=== PATIENT | male | born 1950 | race Caucasian/White ===

== ENCOUNTER 2018-03-31 22:58 | Emergency (ER) | payer BC, MEDICARE ==
[2018-03-31] MEDS ORDERED: Acetaminophen TAB* 325 MG PO ONE (23:24)
[2018-03-31] MEDS ORDERED: NS 0.9% 1000 ML* 1,000 ML IV ONE (23:24)
[2018-03-31] MEDS ORDERED: Albuterol 2.5 MG/3 ML NEB.SOL* (0.083%) INH ONE ×2 (23:24→23:57)
[2018-03-31] MEDS ORDERED: Albuterol/Ipratropium NEB.SOL* Albuterol 2.5 MG/Ipratropium 0.5 MG 3 ML INH ONE (23:24)
[2018-03-31] MEDS ORDERED: Albuterol/Ipratropium NEB.SOL* Albuterol 2.5 MG/Ipratropium 0.5 MG 3 ML ONE (23:57)
--- NOTE | 2018-04-01 00:32 | ED ---
Respiratory - HPI Summary HPI Summary: This is scribe Miko Sorenson documenting for attending Jannie Sifuentes MD. A 67 y/o male presents to ED c/o SOB and cough. In the ED room, the patient has a pulse of 74 BPM, O2 saturation of 98% and blood pressure of 143/74. According to the patient's family, the patient was recently diagnosed with acute bronchitis approximately 1 week ago. He was put on Bactrim. Along with the bronchitis the patient had a fever, but those symptoms broke as he was feeling better for the past couple days, however, the patient today "was going down hill ". He experiences coughing, SOB and pain. He noted that every time he takes a deep breathe he has to cough. His family stated that his temperature was subnormal as it was 98.6 and was diaphoretic at home. Plus, the other day, his cough brought up green/yellow flem (not currently). Patient denies any smoking. Pt was on Prednisone for 2 years but he has been off for past year. No current medications. PMHx of pneumonia and polymyalgia gramatica. I, Dr. Sifuentes, personally performed the services described in this documentation as scribed in my presence and it is both accurate and complete. - History of Current Complaint Chief Complaint: EDShortnessOfBreath Stated Complaint: SOB Time Seen by Provider: 03/31/18 23:11 Hx Obtained From: Patient Onset/Duration: Sudden Onset, Lasting Hours, Still Present Initial Severity: Severe Current Severity: Severe Pain Intensity: 8 Character: Cough (Productive) - Yellow/green flem the other day, not currently. , Cough (Nonproductive) - Current nonproductive cough., Dyspnea at Rest Sputum Amount: None - Currently Sputum Color: Yellow - The other day, Green - The other day Aggravating Factor(s): Deep Breaths - Feels the need to cough with deep breaths Alleviating Factor(s): Nothing Associated Signs and Symptoms: Fever - Subnormal, SOB, Diaphoresis, Dyspnea - Allergy/Home Medications Allergies/Adverse Reactions: Allergies Allergy/AdvReac Type Severity Reaction Status Date / Time amoxicillin [From Augmentin] Allergy Nausea And Verified 03/31/18 23:05 Vomiting clavulanic acid Allergy Nausea And Verified 03/31/18 23:05 [From Augmentin] Vomiting codeine Allergy Nausea And Verified 03/31/18 23:05 Vomiting PMH/Surg Hx/FS Hx/Imm Hx Endocrine/Hematology History: Denies: Hx Diabetes Cardiovascular History: Denies: Hx Hypertension, Hx Pacemaker/ICD Respiratory History: Denies: Hx Asthma, Hx Chronic Obstructive Pulmonary Disease (COPD) History: Denies: Hx Renal Disease Musculoskeletal History: Reports: Other Musculoskeletal History - polymyalgia rheumatica Sensory History: Denies: Hx Hearing Aid Psychiatric History: Denies: Hx Panic Disorder - Surgical History Surgery Procedure, Year, and Place: deviated septum,lt rotator cuff repair,pec repair,appy, lt knee cap bone chip removed, rt foot orif multiple sites, - Immunization History Immunizations Up to Date: Yes Infectious Disease History: No Infectious Disease History: Denies: Traveled Outside the [place] in Last 30 Days - Family History Known Family History: Positive: Diabetes - Uncle and mother - Social History Alcohol Use: Rare Substance Use Type: Reports: None Smoking Status (MU): Never Smoked Tobacco Review of Systems Positive: Fever - subnormal, Skin Diaphoresis Positive: Shortness Of Breath, Cough, Other - POSITIVE: Pain All Other Systems Reviewed And Are Negative: Yes Physical Exam - Summary Physical Exam Summary: VITAL SIGNS: Reviewed. GENERAL: Patient is a well-developed and nourished male who is lying comfortable in the stretcher. Patient is in acute respiratory distress. Patient is coughing in ED room. HEAD AND FACE: No signs of trauma. No ecchymosis, hematomas or skull depressions. No sinus tenderness. EYES: PERRLA, EOMI x 2, No injected conjunctiva, no nystagmus. EARS: Hearing grossly intact. Ear canals and tympanic membranes are within normal limits. MOUTH: Oropharynx within normal limits. NECK: Supple, trachea is midline, no adenopathy, no JVD, no carotid bruit, no c- spine tenderness, neck with full ROM. CHEST: Symmetric, no tenderness at palpation LUNGS: Decreased bilaterally breathe sounds. Patient is coughing in ED room. CVS: Regular rate and rhythm, S1 and S2 present, no murmurs or gallops appreciated. ABDOMEN: Soft, non-tender. No signs of distention. No rebound no guarding, and no masses palpated. Bowel sounds are normal. EXTREMITIES: FROM in all major joints, no edema, no cyanosis or clubbing. NEURO: Alert and oriented x 3. No acute neurological deficits. Speech is normal and follows commands. SKIN: Dry and warm Triage Information Reviewed: Yes Vital Signs On Initial Exam: Initial Vitals Temp Pulse Resp BP Pulse Ox 97.8 F 83 24 143/61 100 03/31/18 23:01 03/31/18 23:01 03/31/18 23:01 03/31/18 23:01 03/31/18 23:01 Vital Signs Reviewed: Yes Diagnostics - Vital Signs Vital Signs Temp Pulse Resp BP Pulse Ox 03/31/18 23:01 97.8 F 83 24 143/61 100 - Laboratory Result Diagrams: 04/01/18 00:49 04/01/18 00:50 Lab Statement: Any lab studies that have been ordered have been reviewed, and results considered in the medical decision making process. - Radiology CXR Radiology Interpretation Completed By: ED Physician - No acute process. Pending official report. - CT CTA CHEST/THORAX CT Interpretation Completed By: Radiologist - 1. No evidence of pulmonary embolic disease. 2. No colonic consolidation. 3. Focal hypodensities located in the liver. This could represent a hemangioma a similar lesion is seen in the left lobe the liver. ED physician reviewed this radiology report. - EKG 2324 Cardiac Rate: NL - 66 BPM EKG Rhythm: Sinus Rhythm EKG Interpretation: Normal axis, normal interval, no ischemic changes. Re-Evaluation - Re-Evaluation First Eval Re-Evaluation Time: 04:03 Comment: Repeated lactic acid was 2.8, however, patient recieved only 1 L of IV fluid. Disposition - Course Course Of Treatment: A 67 y/o male presents to ED c/o SOB and cough. In the ED room, the patient has a pulse of 74 BPM, O2 saturation of 98% and blood pressure of 143/74. During examination, patient was coughing and exhibited decreased breath sounds bilaterally. A CTA Chest/Thorax revealed 1. No evidence of pulmonary embolic disease. 2. No colonic consolidation. 3. Focal hypodensities located in the liver. This could represent a hemangioma a similar lesion is seen in the left lobe the liver. A CXR revealed no acute process. An EKG revealed NSR of 66 BPM, normal axis, normal interval, no ischemic changes. In the ED course, the patient recieved Tylenol, Ventolin, Duoneb, Codeine, Visipaque, Solu-Medrol, Klor Con Er Tab and IV fluids. During reevaluation, a repeated lactic acid was 2.8, however, patient recieved only 1 L of IV fluid. Laboratory results was discussed with patient. Patient most likely have free active airway disease. Patient just finished 8-weeks of antibiotic treatment. Patient will be discharged with a diagnosis of cough and reactive airway disease. Patient will be sent home with bronchodilators and steroids. Patient is to follow up with PCP in 1-2 days. Patient is also to increase oral fluid intake. Patient is agreeable with this plan. - Diagnoses Provider Diagnoses: Reactive airway disease, Cough Discharge - Sign-Out/Discharge Documenting (check all that apply): Patient Departure - DISCHARGE - Discharge Plan Condition: Stable Disposition: HOME Prescriptions: Albuterol HFA INHALER* [Ventolin HFA Inhaler*] 2 puff INH Q6H PRN #1 mdi PRN Reason: Cough predniSONE TAB* [Deltasone TAB*] 50 mg PO DAILY #5 tab Patient Education Materials: Acute Cough (ED), Reactive Airways Disease (ED), Shortness of Breath (ED) Forms: *Work Release Referrals: Session Ruiz MUNOZ [Primary Care Provider] - 2 Days Additional Instructions: FOLLOW UP WITH PRIMARY CARE IN 1-2 DAYS. TAKE PREDNISONE AND ALBUTEROL PRESCRIBED. INCREASE ORAL FLUID INTAKE. RETURN TO ED FOR ANY NEW OR WORSENING SYMPTOMS.
[2018-04-01 00:59] LABS: ABS Basophils 0.1 10^3/ul (0-0.2); ABS Eosinophils 0.2 10^3/ul (0-0.6); ABS Lymphocytes 2.5 10^3/ul (1.0-4.8); ABS Monocytes 0.4 10^3/ul (0-0.8); ABS Neutrophils 2.6 10^3/ul (1.5-7.7); ABS Nucleated RBC 0 10^3/ul; Eosinophil % 3.9 % (0-6); Hematocrit 45 % (42-52); Hemoglobin 15.2 g/dl (14.0-18.0); Mean Corpuscular HGB Conc 34 g/dl (31-36); Mean Corpuscular Hemoglobin 31 pg (27-31); Mean Corpuscular Volume 90 fL (80-94); Mean Platelet Volume 8.4 um3 (7.4-10.4); Nucleated Red Blood Cells % 0.2; Platelet Count 149 10^3/ul (150-450); Red Blood Count 4.97 10^6/ul (4.00-5.40); Red Cell Distribution Width 14 % (10.5-15); White Blood Count 5.9 10^3/ul (3.5-10.8)
[2018-04-01 01:07] LABS: INR 0.81 (0.77-1.02)
[2018-04-01 01:17] LABS: EGFR Non-African American 55.2 (>60)
[2018-04-01] MEDS ORDERED: NS 0.9% 1000 ML* 1,000 ML IV ONE (01:22)
[2018-04-01] MEDS ORDERED: Iodixanol 320 (CONTRAST) 100 ML SDV IV ONE (02:08)
[2018-04-01 02:09] LABS: Urine Appearance Clear; Urine Blood Negative (Negative); Urine Color Yellow; Urine Ketones Negative (Negative); Urine Protein Negative (Negative); Urine Specific Gravity 1.015 (1.010-1.030); Urine Urobilinogen Negative (Negative)
--- NOTE | 2018-04-01 03:43 | RAD ---
EXAM: CT Angiography Chest With Intravenous Contrast CLINICAL HISTORY: 67 years old, male; Signs and symptoms; Shortness of breath; Prior surgery; Surgery date: 6+ months; Surgery type: Pectus excavatum; Additional info: SOB TECHNIQUE: Axial computed tomographic angiography images of the chest with intravenous contrast using pulmonary embolism protocol. MIP reconstructed images were created and reviewed. Coronal and sagittal reformatted images were created and reviewed. CONTRAST: 70 mL of VISIPAQUE 320 administered intravenously. COMPARISON: OT - CXR PORTAP CHEST AP PORTABLE 2013-05-03 13:22 FINDINGS: Pulmonary arteries: No evidence of pulmonary embolic disease. Aorta: No acute findings. No thoracic aortic aneurysm. Lungs: No pulmonary consolidation. Linear opacities located in the lungs which may resent areas of platelike atelectasis and/or scarring. Pleural space: No pleural effusion. No pneumothorax. Heart: The cardiac size is normal. No paracardial thickening or effusion. No evidence of RV dysfunction. Bones/joints: No acute fracture. No dislocation. Soft tissues: Unremarkable. Lymph nodes: Unremarkable. No enlarged lymph nodes. Liver: Focal hypodensity located in the right and left lobes of the liver. This measures approximately 8 mm in length and 14 mm in width. It has a central density of approximately 8 Hounsfield units area this could represent a cyst. IMPRESSION: 1. No evidence of pulmonary embolic disease. 2. No focal consolidation. 3. Small nonspecific focal hypodensities in the liver suggestive of cysts or hemangiomas.
[2018-04-01] MEDS ORDERED: Potassium Chlor TAB* 20 MEQ TAB.ER PO ONE (04:00)
[2018-04-01] MEDS ORDERED: methylPREDNISolone 125 MG* 2 ML VIAL IV ONE (04:06)
[2018-04-01] MEDS ORDERED: Codeine TAB* 30 MG PO ONE (04:07)
[2018-04-01] MEDS ORDERED: Albuterol HFA INHALER* 8 gm MDI INH SCH (05:00)
[2018-04-01] MEDS ORDERED: Albuterol HFA INHALER* 8 gm MDI INH ONE (05:06)
[2018-04-01 05:13] VITALS: BP 124/68
--- NOTE | 2018-04-01 07:44 | RAD ---
HISTORY: cough COMPARISONS: May 03, 2013 VIEWS: 1: frontal portable view of the chest at 11:30 PM FINDINGS: LINES AND TUBES: None. CARDIOMEDIASTINAL SILHOUETTE: The cardiomediastinal silhouette is normal for portable technique. PLEURA: The costophrenic angles are sharp. No pleural abnormalities are noted. LUNG PARENCHYMA: There is hyperinflation. ABDOMEN: The upper abdomen is clear. There is no subphrenic gas. BONES AND SOFT TISSUES: No bone or soft tissue abnormalities are noted. IMPRESSION: HYPERINFLATION. NO ACTIVE CARDIOPULMONARY DISEASE. R1
== END 2018-04-01 05:37 | disposition home or self-care (01) ==
LOC: ED 22:58
DX: J45.909 Unspecified asthma, uncomplicated (principal); R05 Cough; R06.02 Shortness of breath; Z88.0 Allergy status to penicillin; R50.9 Fever, unspecified
CPT/HCPCS: 36415; 71045; 71275; 80053; 81003; 82550; 83605; 83880; 84484; 85025; 85610; 85730; 86140; 87040; 93005; 99282; A9270-GY; J2930; Q9967

== ENCOUNTER 2018-09-16 14:07 | Emergency (ER) | payer MEDICARE ==
[2018-09-16 14:39] VITALS: BP 170/70
--- NOTE | 2018-09-16 14:44 | UC ---
Throat Pain/Nasal Blue HPI - HPI Summary HPI Summary: Patient presents to urgent care with his . Patient states he had head cold for approximately 3 weeks that wasn't getting better. Patient states at lamp settled in his chest and he was coughing up yellow-green sputum. Patient states last Saturday, 5 days ago, he saw his PCP. Patient with a course of amoxicillin, Mucinex and Claritin. Patient states he started to feel good for about 3 days. Patient states last evening was at his daughter's house where there is a. Patient states when he left there he felt congested again in a sinus with a sore throat. Patient reports nausea but no vomiting. Patient also with persistent cough. No myalgias. No arthralgias. No fevers. Patient took his amoxicillin today but did not take any mdcu-riy-axhrxav medications. Patient states he was nauseous and didn't drink anything. Patient states he was unable to get in his doctor's office so he came here. Patient reports that his doctor told him that the amoxicillin did not work he would change his prescription to Zithromax. Patient is immunocompromised as he is on methotrexate for Poly myalgia rheumatica. Patient is not currently on prednisone. Patient states his last prednisone use was approximately one year ago. Pt was sick,but improved Pt did not change his toothbrush/linens following intitiation of abx Patient's medications reviewed this visit. - History of Current Complaint Chief Complaint: UCRespiratory Stated Complaint: RESP ISSUE SORE THROAT Time Seen by Provider: 09/16/18 14:43 Hx Obtained From: Patient, Family/Assembler Wet Wash Onset/Duration: Gradual Onset Severity: Moderate Pain Intensity: 2 Pain Scale Used: 0-10 Numeric - Allergies/Home Medications Allergies/Adverse Reactions: Allergies Allergy/AdvReac Type Severity Reaction Status Date / Time amoxicillin [From Augmentin] AdvReac Nausea And Verified 09/16/18 14:38 Vomiting clavulanic acid AdvReac Nausea And Verified 09/16/18 14:38 [From Augmentin] Vomiting codeine AdvReac Nausea And Verified 09/16/18 14:38 Vomiting PMH/Surg Hx/FS Hx/Imm Hx Previously Healthy: Yes - polymyalgia rheumatica - Surgical History Surgical History: Yes Surgery Procedure, Year, and Place: deviated septum,lt rotator cuff repair,pec repair,appy, lt knee cap bone chip removed, rt foot orif multiple sites, - Family History Known Family History: Positive: Diabetes - Uncle and mother, Non-Contributory - Social History Lives: With Family Alcohol Use: Rare Substance Use Type: None Smoking Status (MU): Never Smoked Tobacco - Immunization History Most Recent Influenza Vaccination: 2011 Most Recent Tetanus Shot: 2010 Review of Systems All Other Systems Reviewed And Are Negative: Yes Constitutional: Positive: Fatigue, Other - decreased appetite ENT: Positive: Sore Throat, Nasal Discharge, Sinus Congestion, Sinus Pain/ Tenderness Respiratory: Positive: Cough Cardiovascular: Positive: Negative Gastrointestinal: Positive: Nausea Is Patient Immunocompromised?: Yes - methotrexate Physical Exam - Summary Physical Exam Summary: Vital Signs Reviewed: Yes A+Ox3, no distress, tired appearing Eyes: Conjunctiva Clear, JALIL. EOM intact and full ENT: Hearing grossly normal TM x 2 clear, turbinates inflammed and boggy, + PND. mmoist, uvula midline, no exudate, no erythema Neck: Positive: Supple Respiratory: Positive: No respiratory distress, No accessory muscle use pt with coarse cough, end expiratory wheeze Cardiovascular: RRR nl s1, s2 no m/r CBT <2 sec abd soft + BS nt/nd no guarding, no distension Musculoskeletal Exam: GRAY x 4 without difficulty Strength Intact, ROM Intact Neurological: Positive: Alert, + sensation throughout Psychological: Positive: Normal Response To Family Skin: Positive: no rash, no ecchymosis Triage Information Reviewed: Yes Vital Signs: Initial Vital Signs Temp 99.4 F 09/16/18 14:35 Pulse 86 09/16/18 14:35 Resp 18 09/16/18 14:35 BP 170/70 09/16/18 14:35 Pulse Ox 99 09/16/18 14:35 Diagnostics - Radiology No standard instances Radiology Interpretation Completed By: Radiologist - Patient Name: MADY NICOLE JR Medical Record#: [id number] Ordering Physician: Iveth Michele MD Acct.#: [id number] : 1950 Age: 67 Sex: M Location: [facility] Exam Date: 09/16/18 1456 ADM Status: REG ER Order Information: CHEST PA & LAT 2 VWS Accession Number: [id number] CPT: 22793 HISTORY: recurrent cough, congestion, immunocompromised COMPARISONS: January 29, 2018 VIEWS: 4: Frontal dual-energy and lateral views of the chest. FINDINGS: CARDIOMEDIASTINAL SILHOUETTE: The cardiomediastinal silhouette is normal. FRANCISCO: The francisco are normal. PLEURA: The costophrenic angles are sharp. No pleural abnormalities are noted. LUNG PARENCHYMA: The lungs are clear. ABDOMEN: The upper abdomen is clear. There is no subphrenic gas. BONES AND SOFT TISSUES: No bone or soft tissue abnormalities are noted. OTHER: None. IMPRESSION: HYPERINFLATION, CONSISTENT WITH COPD. NO ACTIVE CARDIOPULMONARY DISEASE. <Electronically signed by Dk Rossi MD in OV> [id number] Dictated By: Dk Rossi MD Dictated Date/Time: 09/16/181514 Transcribed Date/Time: 09/16/181513 Copy to: CC:Jessee Purdy DO; Iveth Michele MD Imaging - [facility] Imaging - [facility] [address] [place] [address] ph ([phone]) ph ([phone]) ph ([phone]) This report is only to be considered final once signed by the Provider(s) as displayed in the "<Electronically Signed by >" field (s). Absence of a signature indicates the report is in a draft status and still needs to be finalized. In the event this document was created by someone other than the signing Provider, the individual initiating the document will be listed in the "Entered by:" or "Dictated by:" kwok. 1 of 1 Re-Evaluation - Re-Evaluation First Eval Change: Improved - Pt coughing improved follow-ing neb wheezing resolved coug improved reviewed with pt complete amox pred hydrate humidfied secretion precaution work note pcp f/u Throat Pain/Nasal Course/Dx - Course Assessment/Plan: Patient presents with relapsing cough congestion postnasal drip. Patient's 5 days on amoxicillin. Patient states he was feeling better until yesterday when he started to get sick again. Patient did not take any medications today other than his amoxicillin. Patient vital signs reviewed. On exam patient with congestion postnasal drip coarse cough. Patient does have an excellent release. Patient does not have a history of lung disease of asthma as a child. We'll give a DuoNeb and check chest x-ray. We'll check patient for fluids well. We'll reassess. Patient comfortable in agreement with plan. Pt's BP elevated - recommend recheck at PCP - Differential Dx/Diagnosis Provider Diagnosis: Acute bronchitis - Physician Notification/Consults Instructed by Provider To: MD Will See In ED Discharge - Sign-Out/Discharge Documenting (check all that apply): Patient Departure All imaging exams completed and their final reports reviewed: Yes - Discharge Plan Condition: Stable Disposition: HOME Prescriptions: Albuterol 2.5MG/3ML (0.083%)* [Ventolin 2.5 MG/3 ML NEB.NALDO*] 2.5 mg INH Q4H # 30 neb.naldo predniSONE TAB* [Deltasone TAB*] 50 mg PO DAILY #5 tab Patient Education Materials: Acute Bronchitis (ED) Forms: *Work Release Referrals: Jessee Purdy DO [Primary Care Provider] - Additional Instructions: -Continue to take antibiotics exactly as prescribed until gone -Use your albuterol puffer or nebulizer - every 4 hours for the next 2 days - then as needed -Stay well hydrated - avoid excess caffeine and all alcohol - eat regular, healthy meals - - humidify the air in the room where you sleep - boil water, run a hot steam shower, vaporizer, cups of water by heat register - okay to take over the counter decongestant and cough medication - take prednisone as prescribed until gone -- These infections are spread by secretions - do NOT share eating or drinking utensils - clean items you share with other people such as cell phones, computer mouse, TV remote, computer tablets,etc.. Once you have been antibiotics for 2 days, change your toothbrush and your pillowcase. -Contact your doctor to arrange a follow-up appointment on Saturday or Saturday. Call your doctor, return here or go to the emergency department with any questions or concerns - Billing Disposition and Condition Condition: STABLE Disposition: Home
[2018-09-16] MEDS ORDERED: Albuterol/Ipratropium NEB.SOL* Albuterol 2.5 MG/Ipratropium 0.5 MG 3 ML INH ONE (14:56)
[2018-09-16 15:06] LABS: Influenza A Molecular NEGATIVE (Negative); Influenza B Molecular NEGATIVE (Negative)
== END 2018-09-16 15:45 | disposition home or self-care (01) ==
LOC: UCEAST 14:07
DX: J20.9 Acute bronchitis, unspecified (principal); R11.0 Nausea; Z88.0 Allergy status to penicillin; Z88.5 Allergy status to narcotic agent
CPT/HCPCS: 71046; 87651; 99212; A9270-GY; G0463

== ENCOUNTER 2018-09-23 15:25 | Emergency (ER) | payer MEDICARE ==
--- NOTE | 2018-09-23 16:34 | ED ---
HPI Febrile Illness - HPI Summary HPI Summary: A 67 y/o male presents to [facility] with a chief complaint of bronchitis type stuff since 6 weeks [employer] on 09/23/18. The patient had a CXR done at one week [employer] which showed some infiltrate. The patient reports a weakness, fatigue, cough and SOB, claiming that he can breathe in normally but has difficulty breathing out. The patient also has had an intermittent fever. He denies diaphoresis. A temperature of 98 is noted at triage. At triage the patient rated his pain as a 0/10 in severity. The patient has a Hx of polymyalgia rheumatic but denies a Hx of COPD. He also reports that he outgrew asthma at 15 y/o. He denies smoking. He has been using a nebulizer and taking albuterol. He was recently put on Methotrexate and taken off of Prednisone. He also reports that he took Keflex and Prednisone to no success. He claims that he is starting his third round of abx. - History of Current Complaint Chief Complaint: EDFever Time Seen by Provider: 09/23/18 16:27 Pain Intensity: 0 - Allergy/Home Medications Allergies/Adverse Reactions: Allergies Allergy/AdvReac Type Severity Reaction Status Date / Time amoxicillin [From Augmentin] AdvReac Nausea And Verified 09/23/18 15:54 Vomiting clavulanic acid AdvReac Nausea And Verified 09/23/18 15:54 [From Augmentin] Vomiting codeine AdvReac Nausea And Verified 09/23/18 15:54 Vomiting Home Medications: Home Medications Cholecalciferol TAB* [Vitamin D TAB*] 400 unit PO DAILY 09/23/18 [History Confirmed 09/23/18] PMH/Surg Hx/FS Hx/Imm Hx Endocrine/Hematology History: Denies: Hx Diabetes Cardiovascular History: Denies: Hx Hypercholesterolemia, Hx Hypertension, Hx Pacemaker/ICD Respiratory History: Denies: Hx Asthma, Hx Chronic Obstructive Pulmonary Disease (COPD) History: Denies: Hx Renal Disease Musculoskeletal History: Reports: Other Musculoskeletal History - polymyalgia rheumatica Sensory History: Denies: Hx Hearing Aid Psychiatric History: Denies: Hx Panic Disorder - Surgical History Surgery Procedure, Year, and Place: deviated septum,lt rotator cuff repair,pec repair,appy, lt knee cap bone chip removed, rt foot orif multiple sites, Infectious Disease History: No Infectious Disease History: Denies: Traveled Outside the [place] in Last 30 Days - Family History Known Family History: Positive: Diabetes - Uncle and mother - Social History Alcohol Use: Rare Substance Use Type: Reports: None Hx Tobacco Use: No Smoking Status (MU): Never Smoked Tobacco Review of Systems Positive: Fever - intermittent low grade fever, Fatigue. Negative: Skin Diaphoresis Positive: Shortness Of Breath, Cough Positive: Weakness All Other Systems Reviewed And Are Negative: Yes Physical Exam - Summary Physical Exam Summary: VITAL SIGNS: Reviewed. GENERAL: Patient is a well-developed and nourished MALE who is lying comfortable in the stretcher. Patient is not in any acute respiratory distress. HEAD AND FACE: No signs of trauma. No ecchymosis, hematomas or skull depressions. No sinus tenderness. EYES: PERRLA, EOMI x 2, No injected conjunctiva, no nystagmus. EARS: Hearing grossly intact. Ear canals and tympanic membranes are within normal limits. MOUTH: Oropharynx within normal limits. NECK: Supple, trachea is midline, no adenopathy, no JVD, no carotid bruit, no c- spine tenderness, neck with full ROM. CHEST: Symmetric, no tenderness at palpation LUNGS: Diffuse rhonchi both lungs. No wheezing or crackles. CVS: Regular rate and rhythm, S1 and S2 present, no murmurs or gallops appreciated. ABDOMEN: Soft, non-tender. No signs of distention. No rebound no guarding, and no masses palpated. Bowel sounds are normal. EXTREMITIES: FROM in all major joints, no edema, no cyanosis or clubbing. NEURO: Alert and oriented x 3. No acute neurological deficits. Speech is normal and follows commands. SKIN: Dry and warm Triage Information Reviewed: Yes Vital Signs On Initial Exam: Initial Vitals Temp Pulse Resp BP Pulse Ox 98.0 F 73 18 133/69 95 09/23/18 15:46 09/23/18 15:46 09/23/18 15:46 09/23/18 15:46 09/23/18 15:46 Vital Signs Reviewed: Yes Diagnostics - Vital Signs Vital Signs Temp Pulse Resp BP Pulse Ox 09/23/18 15:46 98.0 F 73 18 133/69 95 - Laboratory Result Diagrams: 09/23/18 17:12 09/23/18 17:11 Lab Statement: Any lab studies that have been ordered have been reviewed, and results considered in the medical decision making process. - Radiology CXR Radiology Interpretation Completed By: Radiologist Summary of Radiographic Findings: Hyperinflated lung kwok without definite pneumonia. ED physician has reviewed this radiology report. - CT CTA chest/thorax CT Interpretation Completed By: Radiologist Summary of CT Findings: 1. Mild bilateral lower lobe and to a lesser degree lingular fibro-atelectatic change which is similar to 04/01/2018 with minimal patchy infiltrates in the lower lobes which are new. 2. Otherwise negative CTA chest. No central pulmonary embolism is identified. - EKG 16:48 Cardiac Rate: NL - 68 bpm EKG Rhythm: Sinus Rhythm EKG Comparison: No Significant Change Summary of EKG Findings: Normal sinus rhythm at [address] elevations, similar to previous EKG done 03/31/18. Course/Dx - Course Assessment/Plan: Blood work without any significant abnormality except for AST of 83, alkaline phosphatase 122, troponin 0.00, urinalysis is negative for UTI, and influenza A&B and negative for infection. Chest x-ray impression: hyperinflated lung kwok without definite pneumonia. Therefore the patient is symptom have any signs of infection. ABG shows a pH of 7.46, PCO2 36, CO2 is 69 and O2 sat is 95.9 and room air. Since the patient had slight wheezing and rhonchi I decided to give a DuoNeb and Solu-Medrol since I believe that the patient has an asthma exacerbation. Patient has history of asthma as a child but not as an adult. CTA chest IMPRESSION: 1. Mild bilateral lower lobe and to a lesser degree lingular fibro-atelectatic. change which is similar to 2017 with minimal patchy infiltrates in the. lower lobes which are new. 2. Otherwise negative CTA chest. No central pulmonary embolism is identified. Patient is feeling better and he will be discharged home with F/u of Dr. Shoemaker. I we will send a position for prednisone for the last couple days and he will continue to taking history and DuoNebs at home. Patient is hemodynamically stable alert oriented 3. - Diagnoses Provider Diagnoses: Dyspnea, Asthma Discharge - Sign-Out/Discharge Documenting (check all that apply): Patient Departure - discharge Patient Received Moderate/Deep Sedation with Procedure: No - Discharge Plan Condition: Stable Disposition: HOME Prescriptions: predniSONE [Prednisone 20 MG TAB] 40 mg PO DAILY #8 tablet Patient Education Materials: Asthma (ED), Dyspnea (ED) Forms: *Work Release Referrals: Corazon Diallo MD [Medical Doctor] - 2 Days Additional Instructions: RETURN TO THE ED FOR ANY WORSENING OR NEW SYMPTOMS. - Billing Disposition and Condition Condition: STABLE Disposition: Home - Attestation Statements Document Initiated by Scribe: Yes Documenting Scribe: Narayan Loya Provider For Whom Scribe is Documenting (Include Credential): Molina Becerra MD Scribe Attestation: Narayan Bradley, scribed for Molina Becerra MD on 09/23/18 at 2123. Scribe Documentation Reviewed: Yes Provider Attestation: The documentation as recorded by the Narayan ledesma accurately reflects the service I personally performed and the decisions made by Molina mullins MD Status of Scribe Document: Viewed
[2018-09-23 17:12] LABS: Influenza A Molecular NEGATIVE (Negative); Influenza B Molecular NEGATIVE (Negative)
[2018-09-23 17:18] LABS: Hematocrit 49 % (42-52); Hemoglobin 16.5 g/dl (14.0-18.0); Mean Corpuscular HGB Conc 34 g/dl (31-36); Mean Corpuscular Hemoglobin 30 pg (27-31); Mean Corpuscular Volume 89 fL (80-94); Mean Platelet Volume 8.6 fL (7.4-10.4); Platelet Count 168 10^3/ul (150-450); Red Blood Count 5.54 10^6/ul (4.00-5.40); Red Cell Distribution Width 14 % (10.5-15); White Blood Count 8.8 10^3/ul (3.5-10.8)
[2018-09-23 17:43] LABS: ABS Basophils 0 10^3/ul (0-0.2); ABS Eosinophils 0.8 10^3/ul (0-0.6); ABS Lymphocytes 2.1 10^3/ul (1.0-4.8); ABS Monocytes 0.6 10^3/ul (0-0.8); ABS Neutrophils 5.3 10^3/ul (1.5-7.7); ABS Nucleated RBC 0 10^3/ul; Eosinophil % 8.8 %; Nucleated Red Blood Cells % 0.1
[2018-09-23 17:44] LABS: Albumin/Globulin Ratio 1.5 (1-3); BUN/Creatinine Ratio 20.5 (8-20); Calcium 9.2 mg/dL (8.6-10.3); EGFR African American 75.5 (>60); EGFR Non-African American 62.4 (>60); Globulin 2.6 g/dL (2-4); Potassium 4.4 mmol/L (3.5-5.0); Total Bilirubin 0.4 mg/dL (0.2-1.0); Total Protein 6.6 g/dL (6.4-8.9)
[2018-09-23 17:48] LABS: CKMB ng/mL 1.6 ng/mL (0.6-6.3)
[2018-09-23] MEDS ORDERED: methylPREDNISolone 125 MG* 2 ML VIAL IV ONE (18:10)
[2018-09-23] MEDS ORDERED: Albuterol/Ipratropium NEB.SOL* Albuterol 2.5 MG/Ipratropium 0.5 MG 3 ML INH ONE (18:10)
[2018-09-23 18:11] LABS: Urine Appearance Cloudy; Urine Bilirubin Negative (Negative); Urine Blood Negative (Negative); Urine Color Yellow; Urine Glucose Negative (Negative); Urine Ketones Negative (Negative); Urine Nitrite Negative (Negative); Urine Protein Negative (Negative); Urine Urobilinogen Negative (Negative)
[2018-09-23] MEDS ORDERED: Iohexol 350* (CONTRAST) 500 ML MDV IV ONE (19:47)
[2018-09-23 21:16] VITALS: BP 147/89
== END 2018-09-23 21:16 | disposition home or self-care (01) ==
LOC: ED 15:25
DX: R06.00 Dyspnea, unspecified (principal); J45.909 Unspecified asthma, uncomplicated; R50.9 Fever, unspecified; R06.02 Shortness of breath; R05 Cough
CPT/HCPCS: 36415; 71046; 71275; 80053; 81003; 82550; 82553; 82803; 83605; 83880; 84484; 85025; 85379; 85730; 86140; 87040; 93005; 99284; A9270-GY; J2930; Q9967

== ENCOUNTER 2020-08-02 10:14 | Observation (INO) ==
[2020-08-02 11:24] LABS: ABS Eosinophils 0.1 10^3/ul (0-0.6); ABS Monocytes 0.4 10^3/ul (0-0.8); ABS Neutrophils 7.8 10^3/ul (1.5-7.7); Eosinophil % 0.7 %; Hematocrit 47 % (42-52); Hemoglobin 16.3 g/dL (14.0-18.0); Lymphocyte % 10.6 %; Mean Corpuscular HGB Conc 34 g/dL (31-36); Mean Corpuscular Hemoglobin 30 pg (27-31); Mean Corpuscular Volume 87 fL (80-94); Mean Platelet Volume 9.5 fL (7.4-10.4); Nucleated Red Blood Cells % 0.1; Platelet Count 131 10^3/uL (150-450); Red Blood Count 5.45 10^6 /uL (4.18-5.48); Red Cell Distribution Width 14 % (10-15); White Blood Count 9.3 10^3/uL (3.5-10.8)
[2020-08-02 11:45] LABS: Albumin 4.2 g/dL (3.2-5.2); Albumin/Globulin Ratio 1.8 (1-3); BUN/Creatinine Ratio 16.5 (8-20); Calcium 9.3 mg/dL (8.6-10.3); EGFR African American 81.4 (>60); EGFR Non-African American 67.3 (>60); Globulin 2.3 g/dL (2-4); Magnesium 2.1 mg/dL (1.9-2.7); Potassium 4.3 mmol/L (3.5-5.0); Total Bilirubin 0.8 mg/dL (0.2-1.0); Total Protein 6.5 g/dL (6.4-8.9)
[2020-08-02] MEDS ORDERED: Iohexol 350 (CONTRAST) 500 ML MDV IV ONE (11:55)
[2020-08-02 14:02] LABS: Urine Appearance Clear; Urine Bilirubin Negative (Negative); Urine Blood Negative (Negative); Urine Color Yellow; Urine Glucose Negative (Negative); Urine Ketones Negative (Negative); Urine Nitrite Negative (Negative); Urine Protein Negative (Negative); Urine Specific Gravity 1.033 (1.010-1.030); Urine Urobilinogen Negative (Negative)
[2020-08-02] MEDS ORDERED: NS 0.9% 1000 ml BAG 1,000 ML IV ONE (14:08)
[2020-08-03 07:40] VITALS: BP 140/67
[2020-08-03] MEDS ORDERED: Aspirin EC 81 mg TAB.EC (enteric coated) PO SCH (09:00)
== END 2020-08-03 10:05 | disposition home or self-care (01) ==
LOC: ED 10:14 → MEDTELE 10:14
PROVIDERS: ADMIT Student in an Organized Health Care Education/Training Program; ATTEND Student in an Organized Health Care Education/Training Program